=== PATIENT | female | born 1990 | race Hispanic/Latino ===

== ENCOUNTER 2018-08-31 18:04 | Emergency (ER) | payer SELFPAY ==
[~2018-08-31] VITALS: Ht 162.6 cm; Wt 72.6 kg
--- NOTE | 2018-08-31 20:09 | Diagnostic Imaging Report ---
Examination: Single AP view of the chest. COMPARISON: None. INDICATION: Chest pain IMPRESSION: 1. Lines and Tubes: None 2. Lungs are grossly clear. No consolidation or effusion. 3. Cardiomediastinal silhouette is normal. Pulmonary vasculature is normal. 4. No acute bony abnormalities. Signed by: Dr. Atul Murray M.D. on 08/31/2018 8:06 PM
[2018-08-31 20:41] VITALS: BP 136/96
== END 2018-08-31 20:46 | disposition home or self-care (01) ==
LOC: ER 18:04
DX: R07.89 Other chest pain (principal); F41.1 Generalized anxiety disorder
CPT/HCPCS: 71045; 81025; 93005; 99283